=== PATIENT | female | born 1955 | race Caucasian/White ===

== ENCOUNTER 2020-08-23 05:37 | Day surgery (SDC) | payer MEDICARE, OTHER ==
[2020-08-17 11:05] LABS: EOSINOPHILS # (AUTO) 0.1 X10'3 (0-0.9); EOSINOPHILS % (AUTO) 4.4 % (0-6); LYMPHOCYTES # (AUTO) 1.1 X10'3 (1.1-4.8); LYMPHOCYTES % (AUTO) 32.3 % (21-51); MEAN CORPUSCULAR HEMOGLOBIN 32.3 PG (27.0-31.0); MEAN CORPUSCULAR HGB CONC 33.9 g/dL (33.0-36.5); MEAN CORPUSCULAR VOLUME 95.2 FL (78-98); MEAN PLATELET VOLUME 8.4 FL (7.4-10.4); MONOCYTES # (AUTO) 0.2 X10'3 (0-0.9); MONOCYTES % (AUTO) 7.3 % (2-12); NEUTROPHILS # (AUTO) 1.8 X10'3 (1.8-7.7); PRE OP HEMATOCRIT 39.3 % (35.0-45.0); PRE OP HEMOGLOBIN 13.3 g/dL (12.0-16.0); PRE OP PLATELET COUNT 178 X10'3 (140-440); RED BLOOD COUNT 4.12 X10'6 (4.20-5.60); RED CELL DISTRIBUTION WIDTH 13.4 % (11.5-14.5)
[2020-08-17 11:19] LABS: ALBUMIN 3.8 G/DL (3.4-5.0); ALBUMIN/GLOBULIN RATIO 1.1 (1.1-1.5); ALKALINE PHOSPHATASE 68 IU/L (46-116); BLOOD UREA NITROGEN 24 MG/DL (7-18); BUN/CREATININE RATIO 23.1 (6.6-38.0); CHLORIDE 107 MMOL/L (99-107); CREATININE 1.04 MG/DL (0.40-0.90); PRE OP ALT 29 U/L (30-65); PRE OP ANION GAP 6 (8-16); PRE OP AST 32 U/L (10-37); PRE OP BILIRUB, TOTAL 0.6 MG/DL (0.0-1.0); PRE OP GLUCOSE 86 MG/DL (70-104); PRE OP POTASSIUM 4.4 MMOL/L (3.4-5.1); PRE OP SODIUM 143 MMOL/L (135-145); TOTAL CARBON DIOXIDE 29.7 MMOL/L (24-32); TOTAL PROTEIN 7.4 G/DL (6.4-8.2); eGFR 54 ML/MIN
[2020-08-23] VITALS (10 sets, daily range): BP systolic 129–162; BP diastolic 73–89
[~2020-08-23] VITALS: Ht 170.2 cm; Wt 100.7 kg
[~2020-08-23 05:37] MED LIST: ESTR1TAB28 PO; FLUO-1 PO; LISI20TA28 PO; cefazolin/dext.iso 2gm/100ml 100 ML IV ONE; famotidine 20mg tablet PO ONE; ringers solution, lacted 1,000 ML IV SCH
[2020-08-23] MEDS ORDERED: LIDOcaine 1% (10mg/ml) 2ml vial ONE (05:57)
[2020-08-23] MEDS ORDERED: BUPIVAcaine/PF 2.5 mg/ml (0.25%) 30ml vial ONE (06:49)
[2020-08-23] MEDS ORDERED: sevoflurane 250ml liquid IH ONE (07:04)
[2020-08-23] MEDS ORDERED: fentaNYL/PF 50MCG/1 ML 2ML syringe ONE (07:06)
[2020-08-23] MEDS ORDERED: MIDAZolam 1 MG/ML 5ML VIAL ONE (07:07)
[2020-08-23] MEDS ORDERED: ROPIVAcaine 0.5% (5mg/ml) 30ml vial ONE (07:09)
[2020-08-23] MEDS ORDERED: propofol inj 20 ML IV ONE (07:09)
[2020-08-23] MEDS ORDERED: meperidine/PF 25mg/ml syringe IV PRN ×3 (07:40)
[2020-08-23] MEDS ORDERED: ROPIVAcaine 0.2% (10 MG/5 ML) BOLUS INJECTION INTERSCALE PRN (07:40)
[2020-08-23] MEDS ORDERED: ondansetron/PF 4mg/2ml inj IV PRN (07:40)
[2020-08-23] MEDS ORDERED: ringers solution, lacted 1,000 ML IV SCH (07:40)
[2020-08-23] MEDS ORDERED: proCHLORperazine 10 MG/2 ml inj IV PRN (07:40)
[2020-08-23] MEDS ORDERED: ROPIVAcaine 0.2%/PF PUMP/bolus 545 ML INTERSCALE SCH (07:40)
[2020-08-23] MEDS ORDERED: morphine 4 MG/ML inj SYRINge IV PRN (07:40)
[2020-08-23] MEDS ORDERED: morphine 2 MG/ML inj. syringe IV PRN (07:40)
--- NOTE | 2020-08-23 09:35 | NUR ---
ADMITTED TO PACU FROM OR ACCOMPANIED BY ANESTHESIA. INTIAL PHYSICAL ASSESSMENT DONE AND RECORDED. REPORT RECEIVED FROM ANESTHESIA.
[2020-08-23] MEDS ORDERED: HYDROcodone/acetaminophen 10/325mg tab PO PRN (10:00)
--- NOTE | 2020-08-23 11:00 | NUR ---
DISCHARGE CRITERIA MET, DISCHARGE INSTRUCTIONS GIVEN, DEMONSTRATES VERBAL UNDERSTANDING. DISCHARGED HOME IN GOOD CONDITION. DETAILED INSTUCTIONS TO RE ON Q PUMP, DEMONSTRATES UNDERSTANDING
== END 2020-08-23 11:00 | disposition home or self-care (01) ==
LOC: PAS 05:37
PROVIDERS: ATTEND Orthopaedic Surgery
DX: M75.122 Complete rotator cuff tear or rupture of left shoulder, not specified as traumatic (principal); M25.512 Pain in left shoulder; W19.XXXA Unspecified fall, initial encounter; Y93.89 Activity, other specified; Y92.89 Other specified places as the place of occurrence of the external cause
CPT/HCPCS: 29827; 36415; 64416; 76937; 80053; 82948; 85025; C1713; J2001; J2250; J2704; J2795; J3010; J3490; J7120; U0003; A4565; A4618; A6449; A7000

== ENCOUNTER 2020-08-24 13:16 | Emergency (ER) | payer MEDICARE, OTHER ==
[~2020-08-24] VITALS: Ht 170.2 cm; Wt 101.8 kg
[~2020-08-24 13:16] MED LIST changes: -cefazolin/dext.iso 2gm/100ml 100 ML IV ONE; -famotidine 20mg tablet PO ONE; -ringers solution, lacted 1,000 ML IV SCH
[2020-08-24] MEDS ORDERED: sucralfate 1 gm tablet PO ONE (14:50)
[2020-08-24] MEDS ORDERED: ipratropium/albuterol 3ml nebule NEB ONE (14:50)
[2020-08-24] MEDS ORDERED: mag hydrox/Alum hydrox/simeth 30ml oral suspension PO ONE (14:50)
[2020-08-24] MEDS: LIDOcaine Viscous 15ml cup MM ONE ×2 (15:03→15:07)
[2020-08-24] MEDS ORDERED: LORazepam 1 MG tablet PO ONE (15:20)
[2020-08-24 15:34] VITALS: BP 158/90
--- NOTE | 2020-08-24 15:35 | NUR ---
ADMINISTERED ATIVAN PILL TO PT, PT WAS ABLE TO SWOLLOW THE PILL BUT WITH SOME DIFFICULTY. PROVIDER MADE AWARE, WILL CONTINUE TO MONITO
== END 2020-08-24 16:08 | disposition home or self-care (01) ==
LOC: ER 13:17
DX: J98.11 Atelectasis (principal); R07.89 Other chest pain; R05 Cough; R51.9 Headache, unspecified; I10 Essential (primary) hypertension; G89.29 Other chronic pain; Z98.890 Other specified postprocedural states; Z88.0 Allergy status to penicillin; Z79.899 Other long term (current) drug therapy
CPT/HCPCS: 71046; 93005; 94640; 94760; 99283; 99284

== ENCOUNTER 2020-10-26 05:34 | Day surgery (SDC) | payer MEDICARE, OTHER ==
[~2020-10-26] VITALS: Ht 170.2 cm; Wt 103.6 kg
[2020-10-26] VITALS (13 sets, daily range): BP systolic 94–145; BP diastolic 38–90
[2020-10-26] MEDS ORDERED: diphenhydrAMINE 25mg capsule PO PRN (06:00)
[2020-10-26] MEDS ORDERED: normal saline 1,000 ML IV SCH (06:00)
[2020-10-26] MEDS ORDERED: LORazepam 0.5 MG tablet PO PRN (06:00)
[2020-10-26] MEDS ORDERED: GABA-530 PO (06:17)
[2020-10-26] MEDS ORDERED: HYDR200T84 PO (06:17)
[2020-10-26] MEDS ORDERED: fentaNYL/PF 50MCG/1 ML 2ML syringe ONE (07:01)
[2020-10-26] MEDS ORDERED: LIDOcaine 1% (10mg/ml)w/preservative injection 20ml MDV ONE (07:01)
[2020-10-26] MEDS ORDERED: verapamil 2.5 mg/ml inj IV ONE (07:01)
[2020-10-26] MEDS ORDERED: heparin 1,000unit/ml 10ml vial 10 ML ONE (07:01)
[2020-10-26] MEDS ORDERED: nitroGLYCERIN-Tridil 50MG/D5W 250 ML IV ONE (07:01)
[2020-10-26] MEDS ORDERED: iohexol 350MG/ML 100ml bottle IV ONE (07:01)
[2020-10-26] MEDS ORDERED: midazolam 1 mg/ML 2ml injection ONE (07:01)
[2020-10-26 07:02] LABS: BASOPHILS # (AUTO) 0.1 X10'3 (0-0.2); BASOPHILS % (AUTO) 1.1 % (0-1); EOSINOPHILS # (AUTO) 0.2 X10'3 (0-0.9); EOSINOPHILS % (AUTO) 4.1 % (0-6); HEMATOCRIT 38.9 % (35.0-45.0); HEMOGLOBIN 13.3 g/dl (12.0-16.0); LYMPHOCYTES # (AUTO) 1.5 X10'3 (1.1-4.8); LYMPHOCYTES % (AUTO) 32.2 % (21-51); MEAN CORPUSCULAR HEMOGLOBIN 33.1 PG (27.0-31.0); MEAN CORPUSCULAR HGB CONC 34.1 g/dL (33.0-36.5); MEAN CORPUSCULAR VOLUME 96.9 FL (78-98); MEAN PLATELET VOLUME 8.8 FL (7.4-10.4); MONOCYTES # (AUTO) 0.5 X10'3 (0-0.9); MONOCYTES % (AUTO) 10.3 % (2-12); NEUTROPHILS # (AUTO) 2.5 X10'3 (1.8-7.7); NEUTROPHILS % (AUTO) 52.3 % (42-75); PLATELET COUNT 171 X10'3 (140-440); RED BLOOD COUNT 4.02 X10'6 (4.20-5.60); RED CELL DISTRIBUTION WIDTH 12.9 % (11.5-14.5); WHITE BLOOD COUNT 4.7 X10'3 (4.5-11.0)
[2020-10-26 07:05] LABS: ALBUMIN 3.4 G/DL (3.4-5.0); ANION GAP 10 (8-16); BLOOD UREA NITROGEN 19 MG/DL (7-18); BUN/CREATININE RATIO 19.4 (6.6-38.0); CALCIUM 8.3 MG/DL (8.5-10.1); CHLORIDE 105 MMOL/L (99-107); CREATININE 0.98 MG/DL (0.40-0.90); GLUCOSE 96 MG/DL (70-104); SODIUM 141 MMOL/L (135-145); TOTAL CARBON DIOXIDE 25.6 MMOL/L (24-32); eGFR 57 ML/MIN
[2020-10-26 07:07] LABS: PARTIAL THROMBOPLASTIN TIME 27 SECONDS (22-32); POTASSIUM 4.4 MMOL/L (3.5-5.1)
[2020-10-26] MEDS ORDERED: HYDROcodone/acetaminophen 5mg/325mg tablet PO PRN (08:20)
[2020-10-26] MEDS ORDERED: ondansetron/PF 4mg/2ml inj IV PRN (08:20)
[2020-10-26] MEDS ORDERED: HYDROcodone/acetaminophen 10/325mg tab PO PRN (08:20)
[2020-10-26] MEDS ORDERED: proCHLORperazine 10 MG/2 ml inj IV PRN (08:20)
[2020-10-26] MEDS ORDERED: OXAZEpam 15mg capsule PO PRN (08:20)
[2020-10-26] MEDS ORDERED: nitroGLYCERIN 0.4mg SUBLingual tab SL PRN (08:25)
== END 2020-10-26 13:00 | disposition home or self-care (01) ==
LOC: SSTAY O 05:34
PROVIDERS: ATTEND Internal Medicine Interventional Cardiology
DX: R07.2 Precordial pain (principal); I25.10 Atherosclerotic heart disease of native coronary artery without angina pectoris; I10 Essential (primary) hypertension; E78.5 Hyperlipidemia, unspecified; Z87.891 Personal history of nicotine dependence; Z88.0 Allergy status to penicillin; Z79.899 Other long term (current) drug therapy; Z79.01 Long term (current) use of anticoagulants
CPT/HCPCS: 36415; 80048; 85025; 85610; 85730; 93005; 93458; 99152; C1769; C1894; J1644; J2001; J2250; J2405; J3010; Q9967; 99153; A4620; A5120; A6258; J3490

== ENCOUNTER 2020-11-02 16:12 | Emergency (ER) | payer MEDICARE, OTHER ==
[~2020-11-02] VITALS: Ht 170.2 cm; Wt 101.4 kg
[~2020-11-02 16:12] MED LIST changes: +GABA-530 PO; +HYDR200T84 PO
[2020-11-02 17:25] LABS: BASOPHILS # (AUTO) 0.1 X10'3 (0-0.2); BASOPHILS % (AUTO) 1.1 % (0-1); EOSINOPHILS # (AUTO) 0.2 X10'3 (0-0.9); EOSINOPHILS % (AUTO) 3.3 % (0-6); HEMATOCRIT 38.6 % (35.0-45.0); HEMOGLOBIN 13.2 g/dl (12.0-16.0); LYMPHOCYTES # (AUTO) 1.2 X10'3 (1.1-4.8); LYMPHOCYTES % (AUTO) 24.1 % (21-51); MEAN CORPUSCULAR HEMOGLOBIN 33.6 PG (27.0-31.0); MEAN CORPUSCULAR HGB CONC 34.2 g/dL (33.0-36.5); MEAN CORPUSCULAR VOLUME 98.3 FL (78-98); MEAN PLATELET VOLUME 8.4 FL (7.4-10.4); MONOCYTES # (AUTO) 0.4 X10'3 (0-0.9); MONOCYTES % (AUTO) 7.7 % (2-12); NEUTROPHILS # (AUTO) 3.2 X10'3 (1.8-7.7); NEUTROPHILS % (AUTO) 63.8 % (42-75); PLATELET COUNT 194 X10'3 (140-440); RED BLOOD COUNT 3.93 X10'6 (4.20-5.60); RED CELL DISTRIBUTION WIDTH 13.2 % (11.5-14.5)
[2020-11-02 17:37] LABS: ALANINE AMINOTRANSFERASE 30 U/L (12-78); ALBUMIN 3.5 G/DL (3.4-5.0); ALKALINE PHOSPHATASE 74 IU/L (46-116); AMYLASE 80 U/L (25-115); ANION GAP 9 (8-16); ASPARTATE AMINO TRANSFERASE 30 U/L (10-37); BILIRUBIN,TOTAL 0.4 MG/DL (0.1-1.0); BLOOD UREA NITROGEN 17 MG/DL (7-18); BUN/CREATININE RATIO 17.9 (6.6-38.0); CALCIUM 8.5 MG/DL (8.5-10.1); CHLORIDE 106 MMOL/L (99-107); CREATININE 0.95 MG/DL (0.40-0.90); GLUCOSE 97 MG/DL (70-104); LIPASE 253 U/L (73-393); POTASSIUM 4.1 MMOL/L (3.5-5.1); SODIUM 141 MMOL/L (135-145); eGFR 59 ML/MIN
[2020-11-02 19:16] LABS: COLOR,URINE YELLOW (Yellow); GLUCOSE, URINE NEGATIVE (Neg); KETONES,URINE NEGATIVE (Neg); LEUKOCYTE ESTERASE ,URINE NEGATIVE (Neg); NITRITES, URINE NEGATIVE (Neg); OCCULT BLOOD,URINE NEGATIVE (Neg); PH,URINE 5.5 (4.8-8.0); PROTEIN,URINE NEGATIVE (Neg); UROBILINOGEN,URINE 0.2 E.U/dL (0.2-1.0)
[2020-11-02 19:32] LABS: BACTERIA,URINE FEW /HPF (Neg); CLARITY,URINE SLIGHTLY CLOUDY (Clear); RBC,URINE NONE SEEN /HPF (0-2); SQUAMOUS EPITHELIAL CELL,UR MODERATE /LPF (FEW); UA COLLECTION TYPE CLN CATCH MIDSTREAM; WBC,URINE 0-4 /HPF (0-4)
[2020-11-02 20:34] VITALS: BP 161/86
== END 2020-11-02 20:35 | disposition home or self-care (01) ==
LOC: ER 16:12
DX: T81.9XXA Unspecified complication of procedure, initial encounter (principal); R10.31 Right lower quadrant pain
CPT/HCPCS: 36415; 80053; 81001; 82150; 83690; 85025; 93005; 93926; 99285

== ENCOUNTER 2024-03-28 06:38 | Outpatient (CLI) | payer MEDICARE ==
[~2024-03-28 06:38] MED LIST changes: +HYDR200T73 PO; -HYDR200T84 PO
== END 2024-03-28 23:59 | disposition home or self-care (01) ==
LOC: RAD 06:38
PROVIDERS: ATTEND Family Medicine Sports Medicine
DX: M75.41 Impingement syndrome of right shoulder (principal); M75.111 Incomplete rotator cuff tear or rupture of right shoulder, not specified as traumatic; M19.029 Primary osteoarthritis, unspecified elbow; M75.51 Bursitis of right shoulder
CPT/HCPCS: 23350; 73221; 73222; 77002; Q9967; 73040

== ENCOUNTER 2024-04-17 06:39 | Outpatient (CLI) | payer MEDICARE ==
[~2024-04-17 06:39] MED LIST changes: +GADOTERATE MEGLUMINE 7.5 MMOL/15 ML VIAL IV ONE; +LIDOcaine 1% 30ml preserv. free vial ONE; +LIDOcaine 1%/PF 5ML 10 MG/ML VIAL ONE; +iohexol 300 MG/1 ML 50ml polymer ONE
== END 2024-04-17 23:59 | disposition home or self-care (01) ==
LOC: RAD 06:39
PROVIDERS: ATTEND Family Medicine Sports Medicine
DX: S63.591A Other specified sprain of right wrist, initial encounter (principal); M67.431 Ganglion, right wrist; M65.841 Other synovitis and tenosynovitis, right hand; M25.531 Pain in right wrist; Z87.891 Personal history of nicotine dependence; Z79.899 Other long term (current) drug therapy; Z98.890 Other specified postprocedural states; Z88.0 Allergy status to penicillin; X58.XXXA Exposure to other specified factors, initial encounter; Y93.89 Activity, other specified; Y92.89 Other specified places as the place of occurrence of the external cause; Y99.8 Other external cause status
CPT/HCPCS: 25246; 73222; 77002; A9575; J2003; J3490; Q9967; 73115